=== PATIENT | female | born 1965 | race Caucasian/White ===

== ENCOUNTER 2018-01-16 08:10 | Outpatient (CLI) | payer OTHER ==
[~2018-01-16 08:10] MED LIST: ISOVUE-370 76%-LOCM 1 ML ONE
== END 2018-01-16 08:11 | disposition home or self-care (01) ==
LOC: BICCT 08:10
PROVIDERS: ATTEND Internal Medicine
DX: R11.2 Nausea with vomiting, unspecified (principal); K44.9 Diaphragmatic hernia without obstruction or gangrene; K21.9 Gastro-esophageal reflux disease without esophagitis; Z90.49 Acquired absence of other specified parts of digestive tract; Z90.710 Acquired absence of both cervix and uterus; Z98.890 Other specified postprocedural states
CPT/HCPCS: 74177

== ENCOUNTER 2018-10-03 11:10 | Outpatient (CLI) | payer OTHER ==
--- NOTE | 2018-10-10 15:53 | MMO ---
BILATERAL SCREENING MAMMOGRAM: 10/03/18 Reference made to prior mammograms which date back to December 2011. Exam is interpreted with the assistance of CAD. There is heterogeneously dense breast parenchyma bilaterally reducing the sensitivity of mammography and may obscure underlying pathology. There are bilateral scattered calcifications throughout each br east, benign appearing. There is no new dominant mass or suspicious clustering of microcalcification. IMPRESSION: BIRADS 2: Benign Finding(s) Routine annual screening mammography (for women over age 40). POS: [facility]
== END 2018-10-03 11:11 | disposition home or self-care (01) ==
LOC: SCSMAMMO 11:10
PROVIDERS: ATTEND Nurse Practitioner
DX: Z12.31 Encounter for screening mammogram for malignant neoplasm of breast (principal)
CPT/HCPCS: 77067